=== PATIENT | male | born 1985 | race Caucasian/White ===

== ENCOUNTER → 2017-07-10 | Outpatient (CLI) | payer OTHER | END | disposition home or self-care (01) | LOC: LABWHC1 07:23 | PROVIDERS: ATTEND Physician Assistant Medical | DX: Z11.1 Encounter for screening for respiratory tuberculosis (principal) | CPT/HCPCS: 36415; 86480 ==

== ENCOUNTER 2017-07-22 17:59 | Inpatient (IN) | payer BC, OTHER ==
[2017-07-22] MEDS ORDERED: SODIUM CHLORIDE 0.9% 500 ML IV STA (18:23)
--- NOTE | 2017-07-22 18:29 | ED ---
Abdominal Pain HPI <Ahmet Boyd - Last Filed: 07/22/17 21:39> - General Source: patient, RN notes reviewed Mode of arrival: ambulatory Limitations: no limitations <Marcelino Lara - Last Filed: 07/22/17 21:45> - General Chief Complaint: Abdominal Pain Stated Complaint: abdominal pain Time Seen by Provider: 07/22/17 18:16 - History of Present Illness Initial Comments: This a 32-year-old male presents emergency Department chief complaint of right upper quadrant abdominal pain. Patient states his been given pain last few days to weeks ago. Patient states that pain is worsening states that he feels so bloated and distended that he cannot tolerate. Patient states symptoms haven 't worsen with eating. He went to his primary care physician was unable see him today and told to urgent care. Patient states he had an x-ray urgent care which showed large calcified area in his right quadrant bicycle emergency Department for further evaluation. Patient had no prior abdominal surgeries. He states that he forces himself to get sick over the last few nights states it' s on the makes him feel better. He states that he cannot get comfortable symptoms are worse when he lays down. He states is having regular bowel movements no change involvement. Denies any dysuria hematuria. No history kidney stones. Patient denies chest pain, back pain, shortness of breath. Patient states essentially nothing other than vomiting makes his symptoms feel better. (Marcelino Lara) - Related Data Home Medications Medication Instructions Recorded Confirmed Omeprazole 20 mg PO DAILY 07/22/17 07/22/17 Allergies Allergy/AdvReac Type Severity Reaction Status Date / Time No Known Allergies Allergy Verified 07/22/17 18:23 Review of Systems ROS Other: All systems not noted in ROS Statement are negative. <Ahmet Boyd - Last Filed: 07/22/17 21:39> ROS Other: All systems not noted in ROS Statement are negative. <Marcelino Lara - Last Filed: 07/22/17 21:45> ROS Statement: Those systems with pertinent positive or pertinent negative responses have been documented in the HPI. Past Medical History Past Medical History: No Reported History History of Any Multi-Drug Resistant Organisms: None Reported Past Surgical History: No Surgical Hx Reported Past Psychological History: No Psychological Hx Reported Smoking Status: Never smoker Past Alcohol Use History: None Reported Past Drug Use History: None Reported <Marcelino Lara - Last Filed: 07/22/17 21:45> General Exam Limitations: no limitations General appearance: alert, in no apparent distress Head exam: Present: atraumatic, normocephalic, normal inspection Respiratory exam: Present: normal lung sounds bilaterally. Absent: respiratory distress, wheezes, rales, rhonchi, stridor Cardiovascular Exam: Present: regular rate, normal rhythm, normal heart sounds. Absent: systolic murmur, diastolic murmur, rubs, gallop, clicks GI/Abdominal exam: Present: soft, distended (Mild/moderate upper abdominal), tenderness (Right upper quadrant), normal bowel sounds. Absent: guarding, rebound, rigid Back exam: Absent: CVA tenderness (R), CVA tenderness (L) Skin exam: Present: warm, dry, intact, normal color. Absent: rash <Marcelino Lara - Last Filed: 07/22/17 21:45> Vital Signs 07/22/17 07/22/17 18:08 20:31 Temperature 98.3 F 99.0 F Pulse Rate 94 89 Respiratory 20 18 Rate Blood Pressure 143/73 136/65 O2 Sat by Pulse 100 100 Oximetry Medical Decision Making - Lab Data Result diagrams: 07/22/17 18:55 07/22/17 18:55 <Ahmet Boyd - Last Filed: 07/22/17 21:39> - Lab Data Result diagrams: 07/22/17 18:55 07/22/17 18:55 <Marcelino Lara - Last Filed: 07/22/17 21:45> - Medical Decision Making The patient was seen and examined. All diagnostics were reviewed. It does appear that he has significant pancreatitis. He does relate that he drinks 8- 10 beers approximately 3 days per week. It is felt as though his pancreatitis may be related to alcohol use. There is also felt as though he benefit from admission to the hospital. Case will be discussed with medicine in the near future. Case is discussed with the PA and I agree with findings as documented. (Ahmet Boyd) - Lab Data Lab Results 07/22/17 07/22/17 07/22/17 Range/Units 18:55 18:55 18:55 WBC 10.2 (3.8-10.6) k/uL RBC 4.56 (4.30-5.90) m/uL Hgb 13.4 (13.0-17.5) gm/dL Hct 38.5 L (39.0-53.0) % MCV 84.4 (80.0-100.0) fL MCH 29.3 (25.0-35.0) pg MCHC 34.7 (31.0-37.0) g/dL RDW 11.1 L (11.5-15.5) % Plt Count 339 (150-450) k/uL Neutrophils % 78 % Lymphocytes % 12 % Monocytes % 6 % Eosinophils % 1 % Basophils % 1 % Neutrophils # 8.0 H (1.3-7.7) k/uL Lymphocytes # 1.3 (1.0-4.8) k/uL Monocytes # 0.6 (0-1.0) k/uL Eosinophils # 0.1 (0-0.7) k/uL Basophils # 0.1 (0-0.2) k/uL Sodium 137 (137-145) mmol/L Potassium 4.5 (3.5-5.1) mmol/L Chloride 98 (98-107) mmol/L Carbon Dioxide 26 (22-30) mmol/L Anion Gap 13 mmol/L BUN 17 (9-20) mg/dL Creatinine 0.98 (0.66-1.25) mg/dL Est GFR (MDRD) Af Amer >60 (>60 ml/min/1.73 sqM) Est GFR (MDRD) Non-Af >60 (>60 ml/min/1.73 sqM) Glucose 71 L (74-99) mg/dL Calcium 9.5 (8.4-10.2) mg/dL Total Bilirubin 0.6 (0.2-1.3) mg/dL AST 55 (17-59) U/L ALT 47 (21-72) U/L Alkaline Phosphatase 71 (38-126) U/L Total Protein 6.8 (6.3-8.2) g/dL Albumin 4.0 (3.5-5.0) g/dL Amylase 113 H (30-110) U/L Lipase 1056 H (23-300) U/L Urine Color Yellow Urine Appearance Clear (Clear) Urine pH 6.5 (5.0-8.0) Ur Specific [place] 1.029 (1.001-1.035) Urine Protein 2+ H (Negative) Urine Glucose (UA) Negative (Negative) Urine Ketones 3+ H (Negative) Urine Blood Negative (Negative) Urine Nitrite Negative (Negative) Urine Bilirubin Negative (Negative) Urine Urobilinogen <2.0 (<2.0) mg/dL Ur Leukocyte Esterase Negative (Negative) Urine RBC 2 (0-5) /hpf Urine WBC 2 (0-5) /hpf Urine Bacteria Rare H (None) /hpf Urine Mucus Rare H (None) /hpf Disposition <Ahmet Boyd - Last Filed: 07/22/17 21:39> Time of Disposition: 21:45 <Marcelino Lara - Last Filed: 07/22/17 21:45> Clinical Impression: Pancreatitis Disposition: ADMITTED IP TO THIS HOSP Condition: Stable Referrals: Jose Chino DO [Primary Care Provider] - 1-2 days
[2017-07-22 19:12] LABS: Basophils # (A) 0.1 k/uL (0-0.2); Basophils % (A) 1 %; Eosinophils # (A) 0.1 k/uL (0-0.7); Eosinophils % (A) 1 %; HCT 38.5 % (39.0-53.0); HGB 13.4 gm/dL (13.0-17.5); Lymphocytes # (A) 1.3 k/uL (1.0-4.8); Lymphocytes % (A) 12 %; MCH 29.3 pg (25.0-35.0); MCHC 34.7 g/dL (31.0-37.0); MCV 84.4 fL (80.0-100.0); Mean Platelet Volume 6.9; Monocytes # (A) 0.6 k/uL (0-1.0); Monocytes % (A) 6 %; Neutrophils % (A) 78 %; Platelet Count 339 k/uL (150-450); RBC 4.56 m/uL (4.30-5.90); RDW 11.1 % (11.5-15.5); WBC 10.2 k/uL (3.8-10.6)
[2017-07-22 19:15] LABS: Appearance,Urine Clear (Clear); Bacteria,Urine Rare /hpf; Bilirubin,Urine Negative (Negative); Blood,Urine Negative (Negative); Color,Urine Yellow; Glucose,Urine (UA) Negative (Negative); Ketones,Urine 3+ (Negative); Leukocyte Esterase,Urine Negative (Negative); Mucus,Urine Rare /hpf; Nitrite,Urine Negative (Negative); PH, Urine 6.5 (5.0-8.0); Protein,Urine 2+ (Negative); RBC,Urine 2 /hpf (0-5); Specific Gravity,Urine 1.029 (1.001-1.035); Urobilinogen,Urine <2.0 mg/dL (<2.0); WBC,Urine 2 /hpf (0-5)
[2017-07-22 19:21] LABS: ALT 47 U/L (21-72); AST 55 U/L (17-59); Alkaline Phosphatase 71 U/L (38-126); Amylase 113 U/L (30-110); Anion Gap 13 mmol/L; Blood Urea Nitrogen 17 mg/dL (9-20); Calcium 9.5 mg/dL (8.4-10.2); Carbon Dioxide 26 mmol/L (22-30); Chloride 98 mmol/L (98-107); Glucose 71 mg/dL (74-99); Lipase 1056 U/L (23-300); Potassium 4.5 mmol/L (3.5-5.1); Sodium 137 mmol/L (137-145); Total Bilirubin 0.6 mg/dL (0.2-1.3); Total Protein 6.8 g/dL (6.3-8.2)
[2017-07-22] MEDS ORDERED: RX INFO: IV CONTRAST WAS GIVEN 1 EACH MISC MISCELLANE PRN (19:44)
--- NOTE | 2017-07-22 20:07 | US ---
EXAMINATION TYPE: US abdomen limited DATE OF EXAM: 07/22/2017 COMPARISON: NONE CLINICAL HISTORY: Pain. RUQ pain and bloating. EXAM MEASUREMENTS: Liver Length: 15.3 cm Gallbladder Wall: 0.19 cm CBD: 0.34 cm Right Kidney: 11.3 x 4.8 x 4.9 cm Pancreas: Enlarged heterogenous with free fluid visualized. Head measuring 2.6cm. Liver: Hypoechoic area seen only in long image not visualized in transverse.l Gallbladder: No stones seen Evidence for sonographic Carrera's sign: No CBD: wnl Right Kidney: No hydronephrosis or masses seen Enlarged heterogenous pancreas with free fluid visualized. IMPRESSION: There is thickening of the body of the pancreas that could relate to pancreatitis. No dis crete mass seen. No gallstones or dilated ducts.
[2017-07-22] MEDS ORDERED: SODIUM CHLORIDE 0.9% 2,000 ML IV ONE (20:22)
--- NOTE | 2017-07-22 20:35 | CT ---
EXAMINATION TYPE: CT abdomen pelvis w con DATE OF EXAM: 07/22/2017 COMPARISON: NONE HISTORY: Abdominal pain x3 weeks. CT DLP: 428.3 mGycm Automated exposure control for dose reduction was used. TECHNIQUE: Helical acquisition of images was performed from the lung bases through the pelvis. CONTRAST: Performed without Oral Contrast and with IV Contrast, patient injected with 100 mL of Omnipaque 300. FINDINGS: Lung bases are clear. There is a small amount of pleural fluid bilaterally. Liver shows no focal defect. There is extensive diffuse enlargement of the pancreas. There is anterio r displacement of the stomach. Spleen appears normal. Gallbladder appears normal. Liver shows no focal defect. There is no adrenal mass. Kidneys show satisfactory contrast opacification. There is no hydronephrosi s. There is ascites fluid in the pelvis. Bladder distends smoothly. I see no evidence of a bowel obst ruction. There is some fluid in the anterior pararenal space bilaterally. The bony structures are int act. IMPRESSION: THERE IS DIFFUSE ENLARGEMENT OF THE PANCREAS WITH FLUID CONSISTENT WITH ACUTE PANCREATITIS. MILD ASCI WALDEMAR. MILD BILATERAL PLEURAL EFFUSIONS.
[2017-07-22] MEDS ORDERED: ONDANSETRON 4 MG/2 ML VIAL IVP PRN (21:43)
[2017-07-22] MEDS ORDERED: NALOXONE 0.4 MG/ML 1 ML VIAL IV PRN (21:43)
[2017-07-22] MEDS ORDERED: MORPHINE SULFATE 5 MG/ML SYRINGE IV PRN (21:43)
[2017-07-22] MEDS ORDERED: HYDROmorphone 0.5 MG/0.5 ML SYRINGE IVP PRN (21:43)
[2017-07-22] MEDS ORDERED: KETOROLAC 30 MG/ML 1 ML VIAL IVP PRN (21:43)
[2017-07-22 22:17] VITALS: BMI 24.0
[2017-07-23] MEDS: SODIUM CHLORIDE 0.9% 1,000 ML IV SCH ×5 (06:09→20:33)
[2017-07-23] MEDS: PANTOPRAZOLE 40 MG/10 ML VIAL IVP SCH (09:10)
[2017-07-23 09:32] LABS: Basophils # (A) 0.1 k/uL (0-0.2); Basophils % (A) 1 %; Eosinophils # (A) 0.1 k/uL (0-0.7); Eosinophils % (A) 1 %; HCT 38.7 % (39.0-53.0); HGB 13.1 gm/dL (13.0-17.5); Lymphocytes % (A) 11 %; MCH 29.1 pg (25.0-35.0); MCHC 33.9 g/dL (31.0-37.0); MCV 85.9 fL (80.0-100.0); Mean Platelet Volume 6.9; Monocytes # (A) 0.6 k/uL (0-1.0); Monocytes % (A) 7 %; Neutrophils # (A) 7.6 k/uL (1.3-7.7); Neutrophils % (A) 79 %; Platelet Count 332 k/uL (150-450); RDW 11.1 % (11.5-15.5); WBC 9.6 k/uL (3.8-10.6)
[2017-07-23 10:02] LABS: ALT 46 U/L (21-72); AST 52 U/L (17-59); Albumin 3.5 g/dL (3.5-5.0); Alkaline Phosphatase 69 U/L (38-126); Amylase 98 U/L (30-110); Anion Gap 14 mmol/L; Blood Urea Nitrogen 17 mg/dL (9-20); Calcium 9.3 mg/dL (8.4-10.2); Carbon Dioxide 21 mmol/L (22-30); Chloride 104 mmol/L (98-107); Glucose 58 mg/dL (74-99); Lipase 771 U/L (23-300); Potassium 4.6 mmol/L (3.5-5.1); Sodium 139 mmol/L (137-145); Total Bilirubin 0.8 mg/dL (0.2-1.3); Total Protein 6.2 g/dL (6.3-8.2); Triglycerides 117 mg/dL (<150)
--- NOTE | 2017-07-23 10:16 | P.CONS ---
History of Present Illness - Reason for Consult Consult date: 07/23/17 Acute pancreatitis Requesting physician: Lara Parker - History of Present Illness 32-year-old gentleman admitted with acute midepigastric upper abdominal pain radiating to back side, elevated pancreatic enzymes consistent with acute pancreatitis. Patient has been symptomatic for a month now with nausea and abdominal bloatedness discomfort. He socially drinks 3 days a week 4-6 beers. No history of document pancreatitis. Recently evaluated urgent care center with reported elevated pancreatic enzymes. Denies fever chills hematemesis hematochezia melena jaundice or acholic stools. Last alcoholic drink 2 days ago. White count 9.6-10.2. Hemoglobin 13.1-13.4. MCV 84-85. Platelets 332. Amylase 98-113. Lipase 771-1056. LFTs within normal limits. Ultrasound abdomen thickening body of the pancreas no discrete mass. No gallstones. No dilated ducts. CT abdomen and pelvis diffuse enlargement of the pancreas with fluid consistent with acute pancreatitis and mild ascites. Review of Systems Constitutional: Denies fever, chills, sweats, weight gain, or loss. HEENT: Negative for migraines, blurred vision or loss, earaches, drainage, tinnitus, oral mucosal lesions, dysphagia, or odynophagia. Cardiac: Negative for chest pain, arrhythmias, or palpitation. Respiratory: Negative for shortness of breath, hemoptysis, cough, or sputum production. Gastrointestinal: See HPI for pertinent findings. Genitourinary: Negative for hematuria, urgency, frequency, polyuria, dysuria, or penile discharge. Musculoskeletal: Negative for muscle aches, swelling, arthritis, and arthralgias. Neurologic: Negative for stroke or TIA. Endocrine: Negative for thyroid problems. Skin: Negative for rash or itching. Psychiatric: Negative history for depression and anxiety Past Medical History Past Medical History: No Reported History History of Any Multi-Drug Resistant Organisms: None Reported Past Surgical History: No Surgical Hx Reported Past Psychological History: No Psychological Hx Reported Smoking Status: Never smoker Past Alcohol Use History: None Reported Past Drug Use History: None Reported Medications and Allergies Home Medications Medication Instructions Recorded Confirmed Type Omeprazole 20 mg PO DAILY 07/22/17 07/22/17 History Allergies Allergy/AdvReac Type Severity Reaction Status Date / Time No Known Allergies Allergy Verified 07/22/17 18:23 Physical Exam Vitals: Vital Signs Temp Pulse Pulse Resp BP BP Pulse Ox 07/23/17 07:00 97.2 F L 88 16 127/67 99 07/22/17 23:12 96.9 F L 89 19 131/69 99 07/22/17 20:31 99.0 F 89 18 136/65 100 07/22/17 18:08 98.3 F 94 20 143/73 100 Intake and Output 07/22/17 07/23/17 07/23/17 22:59 06:59 14:59 Other: Voiding Method Toilet # Voids 1 Weight 74 kg General appearance: The patient is alert, oriented, in no acute distress. HET: Head is normocephalic and atraumatic. Pupils are equal and reactive. Oropharynx is clear without lesions. Neck: Supple without lymphadenopathy. Trachea midline. Heart: S1 S2. Regular rate and rhythm. Lungs: No crackles or wheezes are heard. Abdomen: Soft, tenderness midepigastrium upper abdomen mildly bloated with bowel sounds. No peritoneal signs. No palpable organomegaly or masses. Extremities: Normal skin color and turgor. No cyanosis, rash, ulceration, clubbing, or edema. Radial and pedal pulses are 2/4 bilaterally. Neurological: No focal deficits. Strength and sensation are grossly intact. Results CBC & Chem 7: 07/23/17 09:10 07/23/17 09:10 Labs: Abnormal Lab Results - Last 24 Hours (Table) 07/22/17 07/22/17 07/22/17 Range/Units 18:55 18:55 18:55 Hct 38.5 L (39.0-53.0) % RDW 11.1 L (11.5-15.5) % Neutrophils # 8.0 H (1.3-7.7) k/uL Carbon Dioxide (22-30) mmol/L Glucose 71 L (74-99) mg/dL Total Protein (6.3-8.2) g/dL Amylase 113 H (30-110) U/L Lipase 1056 H (23-300) U/L Urine Protein 2+ H (Negative) Urine Ketones 3+ H (Negative) Urine Bacteria Rare H (None) /hpf Urine Mucus Rare H (None) /hpf 07/23/17 07/23/17 Range/Units 09:10 09:10 Hct 38.7 L (39.0-53.0) % RDW 11.1 L (11.5-15.5) % Neutrophils # (1.3-7.7) k/uL Carbon Dioxide 21 L (22-30) mmol/L Glucose 58 L (74-99) mg/dL Total Protein 6.2 L (6.3-8.2) g/dL Amylase (30-110) U/L Lipase 771 H (23-300) U/L Urine Protein (Negative) Urine Ketones (Negative) Urine Bacteria (None) /hpf Urine Mucus (None) /hpf CT scan - abdomen: report reviewed (Dr. Paagn) US - abdomen: report reviewed (Dr. Pagan) Assessment and Plan (1) Pancreatitis Narrative/Plan: Suspect alcohol related however other differentials such as hypertriglyceridemia possible autoimmune disease cannot be entirely excluded. Current Visit: Yes Status: Acute Code(s): K85.90 - ACUTE PANCREATITIS WITHOUT NECROSIS OR INFECTION, UNSP SNOMED Code(s): 92176648 Plan: 1. Pancreatic enzymes improving abdominal pain slightly improved. Admission requesting diet. Will allow clear liquid diet and advance as tolerated. 2. Alcohol abstinence discussed. 3. ANGELITO, IgG subclass 1-4 and triglyceride evaluation. 4. Intravenous hydration 125 an hour. Thank you for this kind referral and the opportunity to participate in the care of your patient. This consultation was discussed with Dr. Pagan. The impression and plan of care have been directed as dictated.
--- NOTE | 2017-07-23 11:13 | P.HPIM ---
History of Present Illness 32-year-old pleasant male with no known history of for the past medicall problems came in with complaints of epigastric abdominal pain has been going on for about a month much more worse last couple days. Patient doesn't drink on a regular basis but then when he drinks he drinks binge drinks. Denied any fever chills was having some nausea which resolved at this point of time. Patient is found to have pancreatitis in with elevated lipase and may have alcoholic gastritis patient does have bilateral pleural effusions mild ascites secondary to pancreatitis patient pain is better because of which patient was started on diet advance diet is being advanced patient still has his gallbladder which doesn't seem to be inflamed as per the CAT scan of the abdomen. Patient whenever he drinks drinks about 4-6 beers. Patient's pain is burning sensation for about a month yesterday it's much worse it used to be 3-4 x 10 in severity Review of Systems REVIEW OF SYSTEMS: CONSTITUTIONAL: No fever, no malaise, no fatigue. HEENT: No recent visual problems or hearing problems. Denied any sore throat. CARDIOVASCULAR: No chest pain, orthopnea, PND, no palpitations, no syncope. PULMONARY: No shortness of breath, no cough, no hemoptysis. GASTROINTESTINAL: As mentioned in HPI NEUROLOGICAL: No headaches, no weakness, no numbness. HEMATOLOGICAL: Denies any bleeding or petechiae. GENITOURINARY: Denies any burning micturition, frequency, or urgency. MUSCULOSKELETAL/RHEUMATOLOGICAL: Denies any joint pain, swelling, or any muscle pain. ENDOCRINE: Denies any polyuria or polydipsia. The rest of the 14-point review of systems is negative. Past Medical History Past Medical History: No Reported History History of Any Multi-Drug Resistant Organisms: None Reported Past Surgical History: No Surgical Hx Reported Past Psychological History: No Psychological Hx Reported Smoking Status: Never smoker Past Alcohol Use History: None Reported Past Drug Use History: None Reported Medications and Allergies Home Medications Medication Instructions Recorded Confirmed Type Omeprazole 20 mg PO DAILY 07/22/17 07/22/17 History Allergies Allergy/AdvReac Type Severity Reaction Status Date / Time No Known Allergies Allergy Verified 07/22/17 18:23 Physical Exam Vitals: Vital Signs Temp Pulse Pulse Resp BP BP Pulse Ox 07/23/17 07:00 97.2 F L 88 16 127/67 99 07/22/17 23:12 96.9 F L 89 19 131/69 99 07/22/17 20:31 99.0 F 89 18 136/65 100 07/22/17 18:08 98.3 F 94 20 143/73 100 Intake and Output 07/22/17 07/23/17 07/23/17 22:59 06:59 14:59 Other: Voiding Method Toilet # Voids 1 Weight 74 kg PHYSICAL EXAMINATION: GENERAL: The patient is alert and oriented x3, not in any acute distress. Well developed, well nourished. HEENT: Pupils are round and equally reacting to light. EOMI. No scleral icterus. No conjunctival pallor. Normocephalic, atraumatic. No pharyngeal erythema. No thyromegaly. CARDIOVASCULAR: S1 and S2 present. No murmurs, rubs, or gallops. PULMONARY: Chest is clear to auscultation, no wheezing or crackles. ABDOMEN: Soft, nontender, nondistended, normoactive bowel sounds. No palpable organomegaly. MUSCULOSKELETAL: No joint swelling or deformity. EXTREMITIES: No cyanosis, clubbing, or pedal edema. NEUROLOGICAL: Gross neurological examination did not reveal any focal deficits. SKIN: No rashes. Results CBC & Chem 7: 07/23/17 09:10 07/23/17 09:10 Labs: Abnormal Lab Results - Last 24 Hours (Table) 07/22/17 07/22/17 07/22/17 Range/Units 18:55 18:55 18:55 Hct 38.5 L (39.0-53.0) % RDW 11.1 L (11.5-15.5) % Neutrophils # 8.0 H (1.3-7.7) k/uL Carbon Dioxide (22-30) mmol/L Glucose 71 L (74-99) mg/dL Total Protein (6.3-8.2) g/dL Amylase 113 H (30-110) U/L Lipase 1056 H (23-300) U/L Urine Protein 2+ H (Negative) Urine Ketones 3+ H (Negative) Urine Bacteria Rare H (None) /hpf Urine Mucus Rare H (None) /hpf 07/23/17 07/23/17 Range/Units 09:10 09:10 Hct 38.7 L (39.0-53.0) % RDW 11.1 L (11.5-15.5) % Neutrophils # (1.3-7.7) k/uL Carbon Dioxide 21 L (22-30) mmol/L Glucose 58 L (74-99) mg/dL Total Protein 6.2 L (6.3-8.2) g/dL Amylase (30-110) U/L Lipase 771 H (23-300) U/L Urine Protein (Negative) Urine Ketones (Negative) Urine Bacteria (None) /hpf Urine Mucus (None) /hpf Thrombosis Risk Factor Assmnt - Choose All That Apply Any of the Below Risk Factors Present?: No Other Risk Factors: No Other congenital or acquired thrombophilia - If yes, enter type in comment: No Thrombosis Risk Factor Assessment Level: Very Low Risk Assessment and Plan Plan: -Abdominal pain: Secondary to possible acute pancreatitis patient may have a colic pancreatitis no evidence of cholelithiasis at this time. Patient will be advanced. -Alcoholic gastritis -Bilateral pleural effusions and myelocyte is secondary to pancreatitis most probably. The patient is clinically doing well patient will be discharged tomorrow we will advance her diet.
[2017-07-24] MEDS: SODIUM CHLORIDE 0.9% 1,000 ML IV SCH (06:28)
[2017-07-24 07:38] VITALS: BP 120/69; PULSE 76; RESP 16; TEMP 97.9
[2017-07-24 08:13] LABS: HCT 36.3 % (39.0-53.0); HGB 12.4 gm/dL (13.0-17.5); MCH 29.5 pg (25.0-35.0); MCHC 34.2 g/dL (31.0-37.0); MCV 86.1 fL (80.0-100.0); Mean Platelet Volume 6.9; Platelet Count 322 k/uL (150-450); RBC 4.22 m/uL (4.30-5.90); RDW 11.2 % (11.5-15.5); WBC 7.6 k/uL (3.8-10.6)
[2017-07-24 08:38] LABS: ALT 41 U/L (21-72); AST 54 U/L (17-59); Albumin 3.5 g/dL (3.5-5.0); Alkaline Phosphatase 63 U/L (38-126); Anion Gap 9 mmol/L; Blood Urea Nitrogen 10 mg/dL (9-20); Calcium 9.3 mg/dL (8.4-10.2); Carbon Dioxide 27 mmol/L (22-30); Chloride 103 mmol/L (98-107); Glucose 90 mg/dL (74-99); Lipase 663 U/L (23-300); Potassium 4.5 mmol/L (3.5-5.1); Sodium 139 mmol/L (137-145); Total Bilirubin 0.5 mg/dL (0.2-1.3); Total Protein 6.2 g/dL (6.3-8.2)
[2017-07-24] MEDS: PANTOPRAZOLE 40 MG/10 ML VIAL IVP SCH (09:22)
--- NOTE | 2017-07-24 10:53 | P.DS ---
Providers Date of admission: 07/22/17 21:43 Attending physician: Lara Parker Consults: 07/22/17 21:43 Consult Physician Stat Consulting Provider: Evelio Negrete Consult Reason/Comments: Acute pancreatitis Do you want consulting provider notified?: Yes Primary care physician: Jose Chino Hospital Course: Patient was admitted for alcohol pancreatitis and gastritis improved symptoms patient is able to tolerate diet patient will be given prescription for 30 days of Prilosec and will be discharged today patient is otherwise clinically doing well no other chronic medical problems PHYSICAL EXAMINATION: GENERAL: The patient is alert and oriented x3, not in any acute distress. Well developed, well nourished. HEENT: Pupils are round and equally reacting to light. EOMI. No scleral icterus. No conjunctival pallor. Normocephalic, atraumatic. No pharyngeal erythema. No thyromegaly. CARDIOVASCULAR: S1 and S2 present. No murmurs, rubs, or gallops. PULMONARY: Chest is clear to auscultation, no wheezing or crackles. ABDOMEN: Soft, nontender, nondistended, normoactive bowel sounds. No palpable organomegaly. MUSCULOSKELETAL: No joint swelling or deformity. EXTREMITIES: No cyanosis, clubbing, or pedal edema. NEUROLOGICAL: Gross neurological examination did not reveal any focal deficits. SKIN: No rashes. Patient Condition at Discharge: Stable Plan - Discharge Summary Discharge Rx Participant: Yes New Discharge Prescriptions: New Omeprazole [PriLOSEC] 40 mg PO AC-BRKFST #30 capsule. Discontinued Omeprazole 20 mg PO DAILY Discharge Medication List Omeprazole [PriLOSEC] 40 mg PO AC-BRKFST #30 capsule. 07/24/17 [Rx] Follow up Appointment(s)/Referral(s): Jose Chino DO [Primary Care Provider] - 3 Days Patient Instructions/Handouts: Pancreatitis (DC) Activity/Diet/Wound Care/Special Instructions: NO alcohol. [place]renshaw-soft diet and advance as tolerated. Activity as tolerated. Discharge Disposition: HOME SELF-CARE
--- NOTE | 2017-07-24 11:33 | P.PN ---
Subjective Progress Note Date: 07/24/17 Principal diagnosis: Pancreatitis Feels better. Tolerating advance diet. Passing flatus. Few small nonbloody bowel movements. Afebrile. Pancreatic enzymes improving. Denies nausea vomiting. Lipase 663. LFTs unremarkable. Objective - Vital Signs Vital signs: Vital Signs Temp 97.9 F 07/24/17 07:00 Pulse 76 07/24/17 07:00 Resp 16 07/24/17 07:00 BP 120/69 07/24/17 07:00 Pulse Ox 96 07/24/17 07:00 Intake & Output 07/23/17 07/24/17 07/24/17 18:59 06:59 18:59 Intake Total 200 Balance 200 Intake: Oral 200 Other: Voiding Method Toilet # Voids 2 2 # Bowel Movements 0 - Exam General appearance: The patient is alert, oriented, in no acute distress. HET: Head is normocephalic and atraumatic. Pupils are equal and reactive. Oropharynx is clear without lesions. Neck: Supple without lymphadenopathy. Trachea midline. Heart: S1 S2. Regular rate and rhythm. Lungs: No crackles or wheezes are heard. Abdomen: Soft, mildly bloated mild tenderness midepigastrium with bowel sounds. No peritoneal signs. No palpable organomegaly or masses. Extremities: Normal skin color and turgor. No cyanosis, rash, ulceration, clubbing, or edema. Radial and pedal pulses are 2/4 bilaterally. Neurological: No focal deficits. Strength and sensation are grossly intact. - Labs CBC & Chem 7: 07/24/17 07:48 07/24/17 07:48 Labs: Abnormal Lab Results - Last 24 Hours (Table) 07/24/17 07/24/17 Range/Units 07:48 07:48 RBC 4.22 L (4.30-5.90) m/uL Hgb 12.4 L (13.0-17.5) gm/dL Hct 36.3 L (39.0-53.0) % RDW 11.2 L (11.5-15.5) % Total Protein 6.2 L (6.3-8.2) g/dL Lipase 663 H (23-300) U/L Assessment and Plan (1) Pancreatitis Narrative/Plan: Suspect alcohol related however other differentials such as hypertriglyceridemia possible autoimmune disease cannot be entirely excluded. Current Visit: Yes Status: Acute Code(s): K85.90 - ACUTE PANCREATITIS WITHOUT NECROSIS OR INFECTION, UNSP SNOMED Code(s): 38985168 Plan: 1. Discharge per medicine. Return to office in 2 weeks. Advised low fat diet 4-6 meals daily. Light activity as tolerated. PPI therapy omeprazole 20 mg daily. 2. Avoidance of spicy foods, alcohol, carbonated beverages. Assessment and plan a care discussed with Dr. Pagan
[2017-07-24 13:14] LABS: IgG Subclass 3 42.8 mg/dL (11.0-85.0); IgG Subclass 4 70.7 mg/dL (3.0-175.0)
== END 2017-07-24 12:03 | disposition home or self-care (01) | DRG 439 ==
LOC: EC 17:59 → 4MS4W 21:43
PROVIDERS: ADMIT Internal Medicine; ATTEND Internal Medicine
DX: K85.90 Acute pancreatitis without necrosis or infection, unspecified (principal); R18.8 Other ascites; J90 Pleural effusion, not elsewhere classified; F10.10 Alcohol abuse, uncomplicated; K29.20 Alcoholic gastritis without bleeding; Z79.899 Other long term (current) drug therapy
CPT/HCPCS: 36415; 74177; 76705; 80053; 81001; 82150; 82787; 83690; 84478; 85025; 85027; 86038; 96360; 99285

== ENCOUNTER 2017-07-27 12:17 | Emergency (ER) | payer BC ==
[2017-07-27] MEDS ORDERED: SODIUM CHLORIDE 0.9% 1,000 ML IV STA (13:21)
[2017-07-27] MEDS ORDERED: HYDROmorphone 0.5 MG/0.5 ML SYRINGE IVP STA ×2 (13:29→14:17)
[2017-07-27] MEDS ORDERED: METOCLOPRAMIDE 5 MG/ML 2 ML VIAL IVP STA (13:29)
[2017-07-27 13:54] LABS: Appearance,Urine Clear (Clear); Bilirubin,Urine Negative (Negative); Blood,Urine Negative (Negative); Color,Urine Yellow; Glucose,Urine (UA) Negative (Negative); Ketones,Urine 2+ (Negative); Leukocyte Esterase,Urine Negative (Negative); Nitrite,Urine Negative (Negative); Protein,Urine Negative (Negative); Specific Gravity,Urine 1.011 (1.001-1.035); Urobilinogen,Urine <2.0 mg/dL (<2.0)
[2017-07-27 13:56] LABS: Basophils # (A) 0.1 k/uL (0-0.2); Basophils % (A) 1 %; Eosinophils # (A) 0.1 k/uL (0-0.7); Eosinophils % (A) 1 %; HCT 39.1 % (39.0-53.0); HGB 13.4 gm/dL (13.0-17.5); Lymphocytes # (A) 0.9 k/uL (1.0-4.8); Lymphocytes % (A) 10 %; MCHC 34.3 g/dL (31.0-37.0); MCV 84.6 fL (80.0-100.0); Mean Platelet Volume 7.3; Monocytes # (A) 0.6 k/uL (0-1.0); Monocytes % (A) 6 %; Neutrophils # (A) 7.8 k/uL (1.3-7.7); Neutrophils % (A) 81 %; Platelet Count 344 k/uL (150-450); RBC 4.62 m/uL (4.30-5.90); RDW 12.1 % (11.5-15.5); WBC 9.6 k/uL (3.8-10.6)
[2017-07-27 14:03] LABS: ALT 52 U/L (21-72); AST 66 U/L (17-59); Albumin 4.1 g/dL (3.5-5.0); Alkaline Phosphatase 76 U/L (38-126); Amylase 79 U/L (30-110); Anion Gap 16 mmol/L; Blood Urea Nitrogen 10 mg/dL (9-20); Calcium 9.8 mg/dL (8.4-10.2); Carbon Dioxide 25 mmol/L (22-30); Chloride 98 mmol/L (98-107); Glucose 77 mg/dL (74-99); Lipase 693 U/L (23-300); Sodium 139 mmol/L (137-145); Total Bilirubin 0.6 mg/dL (0.2-1.3); Total Protein 6.9 g/dL (6.3-8.2)
--- NOTE | 2017-07-27 14:13 | XR ---
EXAMINATION TYPE: XR KUB DATE OF EXAM: 07/27/2017 CLINICAL DATA: 32-year-old male with abdominal pain, PH[facility] COMPARISON: None FINDINGS: There is a small left pleural effusion. No evidence for free intraperitoneal air. Small bowel air-fluid levels in the lower abdomen as well as air-fluid levels in the right side of th e colon. No suspicious calcifications seen. IMPRESSION: 1. The presence of small bowel and colonic air fluid levels suggest ileus or enteritis rather than ob struction. 2. No free air. 3. Small left pleural effusion.
[2017-07-27] MEDS ORDERED: HYDROmorphone 2 MG/ML 1 ML SYRINGE IVP STA (14:18)
--- NOTE | 2017-07-27 14:31 | ED ---
Abdominal Pain HPI - General Chief Complaint: Abdominal Pain Stated Complaint: Abd Pain Time Seen by Provider: 07/27/17 13:21 Source: patient, RN notes reviewed Mode of arrival: ambulatory Limitations: no limitations - History of Present Illness Initial Comments: 32-year-old male presents emergency Department chief complaint of worsening abdominal pain. Patient was discharged on Saturday for pancreatitis. Patient states felt more distended, bloated feeling. Patient states he feels that he is an ileus. Patient states that she was on a liquid diet told progress as tolerated. Denies any alcohol intake. Denies fever or chills. - Related Data Previous Rx's Medication Instructions Recorded Omeprazole [PriLOSEC] 40 mg PO AC-BRKFST #30 capsule. 07/24/17 Hydrocodone/Acetaminophen [[place] 1 tab PO Q6HR PRN #20 tab 07/27/17 5-325] Allergies Allergy/AdvReac Type Severity Reaction Status Date / Time No Known Allergies Allergy Verified 07/27/17 13:23 Review of Systems ROS Statement: Those systems with pertinent positive or pertinent negative responses have been documented in the HPI. ROS Other: All systems not noted in ROS Statement are negative. Past Medical History Past Medical History: No Reported History Additional Past Medical History / Comment(s): pancreatitis History of Any Multi-Drug Resistant Organisms: None Reported Past Surgical History: No Surgical Hx Reported Past Psychological History: No Psychological Hx Reported Smoking Status: Never smoker Past Alcohol Use History: None Reported Past Drug Use History: None Reported General Exam Limitations: no limitations General appearance: alert, in no apparent distress Head exam: Present: atraumatic, normocephalic, normal inspection Respiratory exam: Present: normal lung sounds bilaterally. Absent: respiratory distress, wheezes, rales, rhonchi, stridor Cardiovascular Exam: Present: regular rate, normal rhythm, normal heart sounds. Absent: systolic murmur, diastolic murmur, rubs, gallop, clicks GI/Abdominal exam: Present: soft, distended, tenderness, normal bowel sounds. Absent: guarding, rebound, rigid Back exam: Absent: CVA tenderness (R), CVA tenderness (L) Skin exam: Present: warm, dry, intact, normal color. Absent: rash Course Vital Signs 07/27/17 12:54 Temperature 98.5 F Pulse Rate 97 Respiratory 20 Rate Blood Pressure 146/75 O2 Sat by Pulse 98 Oximetry Medical Decision Making - Medical Decision Making 32-year-old male present emergency from for abdominal pain recent pancreatitis. 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 X-ray does show ileus. Patient will be given bowel regimen at this time and pain medication. Patient will be discharged advised to present here to clear liquid diet and progress as tolerated. - Lab Data Result diagrams: 07/27/17 13:35 07/27/17 13:35 Lab Results 07/27/17 07/27/17 07/27/17 Range/Units 13:35 13:35 13:35 WBC 9.6 (3.8-10.6) k/uL RBC 4.62 (4.30-5.90) m/uL Hgb 13.4 (13.0-17.5) gm/dL Hct 39.1 (39.0-53.0) % MCV 84.6 (80.0-100.0) fL MCH 29.0 (25.0-35.0) pg MCHC 34.3 (31.0-37.0) g/dL RDW 12.1 (11.5-15.5) % Plt Count 344 (150-450) k/uL Neutrophils % 81 % Lymphocytes % 10 % Monocytes % 6 % Eosinophils % 1 % Basophils % 1 % Neutrophils # 7.8 H (1.3-7.7) k/uL Lymphocytes # 0.9 L (1.0-4.8) k/uL Monocytes # 0.6 (0-1.0) k/uL Eosinophils # 0.1 (0-0.7) k/uL Basophils # 0.1 (0-0.2) k/uL Sodium 139 (137-145) mmol/L Potassium 4.0 (3.5-5.1) mmol/L Chloride 98 (98-107) mmol/L Carbon Dioxide 25 (22-30) mmol/L Anion Gap 16 mmol/L BUN 10 (9-20) mg/dL Creatinine 0.89 (0.66-1.25) mg/dL Est GFR (MDRD) Af Amer >60 (>60 ml/min/1.73 sqM) Est GFR (MDRD) Non-Af >60 (>60 ml/min/1.73 sqM) Glucose 77 (74-99) mg/dL Calcium 9.8 (8.4-10.2) mg/dL Total Bilirubin 0.6 (0.2-1.3) mg/dL AST 66 H (17-59) U/L ALT 52 (21-72) U/L Alkaline Phosphatase 76 (38-126) U/L Total Protein 6.9 (6.3-8.2) g/dL Albumin 4.1 (3.5-5.0) g/dL Amylase 79 (30-110) U/L Lipase 693 H (23-300) U/L Urine Color Yellow Urine Appearance Clear (Clear) Urine pH 7.0 (5.0-8.0) Ur Specific [place] 1.011 (1.001-1.035) Urine Protein Negative (Negative) Urine Glucose (UA) Negative (Negative) Urine Ketones 2+ H (Negative) Urine Blood Negative (Negative) Urine Nitrite Negative (Negative) Urine Bilirubin Negative (Negative) Urine Urobilinogen <2.0 (<2.0) mg/dL Ur Leukocyte Esterase Negative (Negative) Disposition Clinical Impression: Pancreatitis, Ileus, Abdominal pain Disposition: HOME SELF-CARE Condition: Stable Instructions: Ileus (ED) Additional Instructions: Please return to the Emergency Department if symptoms worsen or any other concerns. Prescriptions: Hydrocodone/Acetaminophen [[place] 5-325] 1 tab PO Q6HR PRN #20 tab PRN Reason: Pain Referrals: Jose Chino DO [Primary Care Provider] - 1-2 days Time of Disposition: 14:39
[2017-07-27] MEDS ORDERED: MAGNESIUM CITRATE 296 ML BOTTLE PO ONE (14:37)
[2017-07-27] MEDS ORDERED: BISACODYL 10 MG SUPP RECTAL STA (14:37)
[2017-07-27 14:42] VITALS: BP 135/71; PULSE 91; RESP 18; TEMP 98.6
== END 2017-07-27 15:13 | disposition home or self-care (01) ==
LOC: EC 12:17
DX: K85.90 Acute pancreatitis without necrosis or infection, unspecified (principal); K56.7 Ileus, unspecified; Z53.8 Procedure and treatment not carried out for other reasons
CPT/HCPCS: 36415; 80053; 82150; 83690; 85025; 81003; 74018; 99284; 96374; 96375; 96376; 96361; J1170 ×2; J2765

== ENCOUNTER → 2017-11-28 | Outpatient (CLI) | payer BC ==
[2017-11-28 12:00] LABS: HCT 28.4 % (39.0-53.0); HGB 9.6 gm/dL (13.0-17.5); MCH 29.9 pg (25.0-35.0); MCHC 33.7 g/dL (31.0-37.0); MCV 88.7 fL (80.0-100.0); Mean Platelet Volume 7.6; Platelet Count 127 k/uL (150-450); RDW 14.8 % (11.5-15.5)
[2017-11-28 12:31] LABS: WBC 0.8 k/uL (3.8-10.6)
[2017-11-28 12:48] LABS: Anisocytosis (M) Present; Poikilocytosis (M) Present; Tear Drop Cells Present
== END | disposition home or self-care (01) ==
LOC: LABWHC1 10:40
PROVIDERS: ATTEND Internal Medicine
DX: C83.30 Diffuse large B-cell lymphoma, unspecified site (principal)
CPT/HCPCS: 36415; 85025

== ENCOUNTER → 2017-12-03 | Outpatient (CLI) | payer BC ==
[2017-12-03 14:22] LABS: Anisocytosis Slight; HCT 29.7 % (39.0-53.0); HGB 9.8 gm/dL (13.0-17.5); Hypochromasia Slight; MCH 30.4 pg (25.0-35.0); MCHC 33.1 g/dL (31.0-37.0); MCV 91.7 fL (80.0-100.0); Mean Platelet Volume 7.4; Platelet Count 160 k/uL (150-450); Poikilocytosis Slight; RBC 3.23 m/uL (4.30-5.90); RDW 16.2 % (11.5-15.5)
[2017-12-03 14:49] LABS: Band Neutrophils % 11 %; Basophils # (M) 0.15 k/uL (0-0.2); Lymphocytes # (M) 1.36 k/uL (1.0-4.8); Metamyelocytes # (M) 1.36 k/uL (0); Metamyelocytes % 9 %; Monocytes # (M) 1.36 k/uL (0-1.0); Myelocytes % 4 %; Neutrophils % (M) 60 %; Nucleated Red Blood Cells 1 /100 WBC (0-0); Total Cells Counted 200; WBC 15.1 k/uL (3.8-10.6)
[2017-12-03 14:51] LABS: Polychromasia Present
[2017-12-03 14:52] LABS: Toxic Granulation Present
== END | disposition home or self-care (01) ==
LOC: LABWHC1 13:40
PROVIDERS: ATTEND Internal Medicine
DX: C83.30 Diffuse large B-cell lymphoma, unspecified site (principal)
CPT/HCPCS: 36415; 85025

== ENCOUNTER → 2018-06-24 | Outpatient (CLI) | payer BC | END | disposition home or self-care (01) | LOC: LABWHC1 10:33 | PROVIDERS: ATTEND Family Medicine | DX: Z00.00 Encounter for general adult medical examination without abnormal findings (principal) | CPT/HCPCS: 36415 ==

== ENCOUNTER → 2019-11-05 | Outpatient (CLI) | payer BC ==
[2019-11-05 12:20] LABS: Basophils # (A) 0.1 k/uL (0-0.2); Basophils % (A) 1 %; Eosinophils # (A) 0.1 k/uL (0-0.7); Eosinophils % (A) 1 %; HCT 46.4 % (39.0-53.0); HGB 15.4 gm/dL (13.0-17.5); Lymphocytes # (A) 1.6 k/uL (1.0-4.8); Lymphocytes % (A) 30 %; MCH 29.5 pg (25.0-35.0); MCHC 33.1 g/dL (31.0-37.0); MCV 89.2 fL (80.0-100.0); Mean Platelet Volume 7.3; Monocytes # (A) 0.3 k/uL (0-1.0); Monocytes % (A) 6 %; Neutrophils # (A) 3.3 k/uL (1.3-7.7); Neutrophils % (A) 60 %; Platelet Count 240 k/uL (150-450); RDW 12.1 % (11.5-15.5); WBC 5.5 k/uL (3.8-10.6)
== END | disposition home or self-care (01) ==
LOC: LABWHC1 11:26
PROVIDERS: ATTEND Internal Medicine
DX: C83.00 Small cell B-cell lymphoma, unspecified site (principal)
CPT/HCPCS: 36415; 83615; 85025

== ENCOUNTER → 2023-02-12 | Outpatient (CLI) | payer BC ==
--- NOTE | 2023-02-12 12:54 | US ---
EXAMINATION TYPE: US carotid duplex BILAT DATE OF EXAM: 02/12/2023 COMPARISON: NONE CLINICAL INDICATION: Male, 37 years old with history of H53.9 UNSPECIFIED VISUAL DISTURBANC H34.213 O CCLUSION ARTERY; TECHNIQUE: Carotid duplex ultrasound examination. Indirect Doppler criteria was utilized. FINDINGS: EXAM MEASUREMENTS: RIGHT: Peak Systolic Velocity (PSV) cm/sec ----- Right CCA: 120.5 ----- Right ICA: 105.7 ----- Right ECA: 125.3 ICA/CCA ratio: 0.9 RIGHT: End Diastole cm/sec ----- Right CCA: 26.8 ----- Right ICA: 28.3 ----- Right ECA: 17.1 LEFT: Peak Systolic Velocity (PSV) cm/sec ----- Left CCA: 112.1 ----- Left ICA: 88.2 ----- Left ECA: 25.3 ICA/CCA ratio: 0.8 LEFT: End Diastole cm/sec ----- Left CCA: 24.1 ----- Left ICA: 23.8 ----- Left ECA: 16.3 VERTEBRALS (direction of flow): Right Vertebral: Antegrade Left Vertebral: Antegrade Rhythm: Normal TRANSFORMER STOCK CLERK NOTES: Minimal changes, no significant stenosis. IMPRESSION: No evidence for hemodynamically significant stenosis. Criteria for Assigning % of Stenosis / Diameter reduction (Estimation based on the indirect measurements of the internal carotid artery velocities (ICA PSV). 1. Normal (no stenosis)=ICA PSV < 125 cm/s: ratio < 2.0: ICA EDV<40 cm/s. 2. Less than 50% stenosis=ICA PSV < 125 cm/s: ratio < 2.0: ICA EDV<40 cm/s. 3. 50 to 69% stenosis=ICA PSV of 125 to 230 cm/s: ration 2.0 ? 4.0: ICA EDV 40-100 cm/s. 4. Greater than 70% stenosis to near occlusion= ICA PSV > 230 cm/s: ratio > 4.0: ICA EDV > 100 cm/s. 5. Near occlusion= ICA PSV velocities may be low or undetectable: variable ratio and ICA EDV. 6. Total occlusion=unable to detect flow.
== END | disposition home or self-care (01) ==
LOC: RADUSWWP 12:17
PROVIDERS: ATTEND Student in an Organized Health Care Education/Training Program
DX: H53.9 Unspecified visual disturbance (principal); H34.213 Partial retinal artery occlusion, bilateral
CPT/HCPCS: 93880

== ENCOUNTER → 2023-03-01 | Outpatient (CLI) | payer BC ==
--- NOTE | 2023-03-02 13:04 | MR ---
EXAMINATION TYPE: MR brain wo/w con DATE OF EXAM: 03/01/2023 6:37 PM CLINICAL INDICATION:Male, 37 years old with history of R51.9 HEADACHE; Blurry vision bilateral more o n the right, Headache, Hx of lymphoma COMPARISON: MRA today. TECHNIQUE: Multi planar, multi sequence imaging was performed through the brain including: T1, T2, In version recovery, susceptibility weighted imaging and gradient echo imaging and Diffusion weighted im aging. The patient was then given intravenous contrast and multi planar, T1 fat-saturation images wer e obtained. IV Contrast: 7.5 cc Gadavist FINDINGS: The levine-white junctions, ventricular system, basal cisterns appear unremarkable. Diffusion-weighted imaging shows no evidence of restricted diffusion to suggest acute/subacute infarct. Intracranial art erial flow voids are maintained. Midline structures show no abnormality. The susceptibility weighted images do not reveal any evidence for micro-hemorrhage. After administration of gadolinium, no abnorm al enhancement is seen. The bone marrow signal is within normal limits. Paranasal sinuses and mastoid air cells: No significant paranasal sinus disease. Visualized orbits: Orbital contents are intact. IMPRESSION: No evidence of intracranial mass, acute/subacute infarct, or abnormal enhancement.
--- NOTE | 2023-03-02 13:07 | MR ---
EXAMINATION TYPE: MR angio head wo con DATE OF EXAM: 03/01/2023 6:36 PM CLINICAL INDICATION:Male, 37 years old with history of R51.9 HEADACHE; Blurry vision bilateral more o n the right, Headache, Hx of lymphoma COMPARISON: MRI brain same day. Technical: 3-D [id number] Axial with MIP reconstruction created on a separate workstation.. IV Contrast: None Findings: Vertebral arteries: The vertebral arteries are patent. Vertebral arteries are: Left dominant. Basilar artery: The basilar artery is intact. The basilar artery bifurcation is normal. Internal Carotid arteries: The cervical, petrous, cavernous and supraclinoid segments are normal. KALE: Patent with no evidence of aneurysm. ACOM: Present without evidence of aneurysm. MCA: Patent with no evidence of aneurysm. BARRATTE OPERATOR: Patent with no evidence of aneurysm. PCOM: Hypoplastic bilaterally. IMPRESSION: No evidence of aneurysm or significant stenosis.
== END | disposition home or self-care (01) ==
LOC: RADMRIMAIN 17:47
PROVIDERS: ATTEND Student in an Organized Health Care Education/Training Program
DX: H34.213 Partial retinal artery occlusion, bilateral (principal); H53.8 Other visual disturbances; R51.9 Headache, unspecified; Z85.72 Personal history of non-Hodgkin lymphomas
CPT/HCPCS: 70544; 70553; A9585

== ENCOUNTER → 2023-03-05 | Outpatient (CLI) | payer BC ==
--- NOTE | 2023-03-06 07:25 | CA ---
Transthoracic Echo Report Name: Ahmet Murphy Age: 37 Gender: M : 1985 Exam Date: 03/05/2023 12:27 Exam Location: [facility] Ht (in): 69 Wt (lb): 165 Ordering Physician: Sadia Flor MD Attending/Referring Phys: Help Desk Engineer Kemi Escalante RDCS Procedure CPT: Indications: H53.9 VISUAL DIST H34.213 OCCLUSION ARTERY Cardiac Hx: Technical Quality: Excellent Contrast 1: Total Dose (mL): Contrast 2: Total Dose (mL): MEASUREMENTS (Male / Female) Normal Values 2D ECHO LV Diastolic Diameter PLAX 4.7 cm 4.2 - 5.9 / 3.9 - 5.3 cm LV Systolic Diameter PLAX 3.3 cm IVS Diastolic Thickness 0.8 cm 0.6 - 1.0 / 0.6 - 0.9 cm LVPW Diastolic Thickness 0.9 cm 0.6 - 1.0 / 0.6 - 0.9 cm LV Relative Wall Thickness 0.4 RV Internal Dim ED PLAX 3.1 cm LA Systolic Diameter LX 3.2 cm 3.0 - 4.0 / 2.7 - 3.8 cm LV Diastolic Volume MOD BP 111.8 cm??? 67 - 155 / 56 - 104 cm??? LV Systolic Volume MOD BP 38.1 cm??? 22 - 58 / 19 - 49 cm??? LV Ejection Fraction MOD BP 65.9 % >= 55 % LV Cardiac Index MOD BP 2154.8 cm???/min???m??? LV Diastolic Volume MOD 4C 102.1 cm??? LV Systolic Volume MOD 4C 34.7 cm??? LV Ejection Fraction MOD 4C 66.0 % LV Cardiac Index MOD 4C 1971.6 cm???/min???m??? LV Diastolic Length 4C 8.1 cm LV Systolic Length 4C 6.1 cm LV Diastolic Volume MOD 2C 121.8 cm??? LV Systolic Volume MOD 2C 37.0 cm??? LV Ejection Fraction MOD 2C 69.7 % LV Cardiac Index MOD 2C 2480.1 cm???/min???m??? LV Diastolic Length 2C 8.0 cm LV Systolic Length 2C 7.0 cm LA Volume 42.7 cm??? 18 - 58 / 22 - 52 cm??? M-MODE Aortic Root Diameter MM 3.2 cm MV E Point Septal Separation 0.4 cm AV Cusp Separation MM 2.1 cm DOPPLER MV Area PHT 3.4 cm??? Mitral E Point Velocity 105.5 cm/s Mitral A Point Velocity 55.3 cm/s Mitral E to A Ratio 1.9 MV Deceleration Time 225.1 ms MV E' Velocity 15.3 cm/s Mitral E to MV E' Ratio 6.9 TR Peak Velocity 210.8 cm/s TR Peak Gradient 17.8 mmHg Right Ventricular Systolic Press 22.6 mmHg FINDINGS Left Ventricle Left ventricular ejection fraction is estimated at 60-65 %. Left ventricular cavity size normal. Left ventricular wall thickness normal. Normal left ventricular wall motion. Right Ventricle Normal right ventricular size and function. Right ventricular systolic pressure within normal limits. Right Atrium Normal right atrial size. Negative agitated saline bubble study for right to left shunt. Left Atrium Normal left atrial size. Mitral Valve Structurally normal mitral valve. Trace mitral regurgitation. Aortic Valve Trileaflet aortic valve. No aortic valve stenosis or regurgitation. Tricuspid Valve Structurally normal tricuspid valve. Mild tricuspid regurgitation. Pulmonic Valve Structurally normal pulmonic valve. Trace pulmonic regurgitation. Pericardium No pericardial effusion. Aorta Normal size aortic root and proximal ascending aorta. CONCLUSIONS Normal LV systolic function Overall normal intracardiac valves No pericardial effusion Previewed by: Dr. Yoel Borjas MD (Electronically Signed) Final Date: 06 March 2023 07:24
== END | disposition home or self-care (01) ==
LOC: RADECHMAIN 12:23
PROVIDERS: ATTEND Student in an Organized Health Care Education/Training Program
DX: H53.9 Unspecified visual disturbance (principal); H34.213 Partial retinal artery occlusion, bilateral
CPT/HCPCS: 93306

== ENCOUNTER → 2023-03-22 | Outpatient (CLI) | payer BC ==
[2023-03-22 21:00] LABS: ALT 32 U/L (10-49); AST 28 U/L (14-35); Albumin 5.1 d/dL (3.8-4.9); Albumin/Globulin Ratio 2.12 Ratio (1.60-3.17); Alkaline Phosphatase 56 U/L (41-126); BUN/Creat Ratio 15.18 Ratio (12.00-20.00); Blood Urea Nitrogen 16.7 mg/dL (9.0-27.0); Calcium 9.8 mg/dL (8.7-10.3); Carbon Dioxide 27.7 mmol/L (21.6-31.8); Chloride 102 mmol/L (96-109); Globulin 2.4 d/dL (1.6-3.3); Glucose 89 mg/dL (70-110); Potassium 4.5 mmol/L (3.5-5.5); Sodium 141 mmol/L (135-145); T4, Free (Free Thyroxine) 1.28 ng/dL (0.80-1.80); Total Bilirubin 0.5 mg/dL (0.3-1.2); Total Protein 7.5 d/dL (6.2-8.2)
[2023-03-22 21:19] LABS: Basophils # (A) 0.07 X 10*3/uL (0.00-0.10); Eosinophils # (A) 0.05 X 10*3/uL (0.04-0.35); Eosinophils % (A) 0.7 %; HCT 46.2 % (39.6-50.0); HGB 15.4 d/dL (13.0-17.0); Lymphocytes # (A) 2.27 X 10*3/uL (0.90-5.00); Lymphocytes % (A) 31.4 %; MCH 29.6 pg (27.0-32.0); MCHC 33.3 d/dL (32.0-37.0); MCV 88.7 FL (80.0-97.0); Monocytes # (A) 0.58 X 10*3/uL (0.20-1.00); NRBC Per 100 WBC 0 X 10*3/uL (0.00-0.01); Neutrophils # (A) 4.24 X 10*3/uL (1.80-7.70); Neutrophils % (A) 58.8 %; Platelet Count 277 X 10*3/uL (140-440); RBC 5.21 X 10*6/uL (4.40-5.60); RDW 11.8 % (11.5-14.5); WBC 7.22 X 10*3/uL (4.50-10.00)
[2023-03-22 21:49] LABS: Thyroid Peroxidase Antibodies <9.0 U/mL (0.0-33.0)
== END | disposition home or self-care (01) ==
LOC: LABWHC1 14:47
PROVIDERS: ATTEND Internal Medicine Endocrinology, Diabetes & Metabolism
DX: R53.83 Other fatigue (principal)
CPT/HCPCS: 36415; 80053; 82024; 82306; 82533; 82607; 84146; 84305; 84439; 84443; 84480; 85025; 86376

== ENCOUNTER 2024-11-09 15:48 | Day surgery (SDC) | payer BC ==
[~2024-11-09 15:48] MED LIST: SODIUM CHLORIDE 0.9% 1,000 ML IV SCH
[2024-11-09 17:55] LABS: Glucose,Whole Blood 79 mg/dL (70-110)
[2024-11-09 17:57] VITALS: RESP 18; TEMP 97.1
[2024-11-09] MEDS: IV FLUID CONTINUATION 1,000 ML IV ONE (17:57)
[2024-11-09] MEDS: ceFAZolin 2 GM in DEXTROSE 5% IN WATER 50 ML IVPB ONE (18:26)
[2024-11-09] MEDS: LIDOCAINE 1% INJ 10MG/ML (20 ML MDV) SQ ONE (18:29)
[2024-11-09] MEDS: ATROPINE SULFATE 0.1 MG/ML 10ML SYRINGE IVP ONE ×2 (18:34)
--- NOTE | 2024-11-09 19:03 | P.EPPROC ---
- EP Procedure Note Electrophysiology Procedure Note: Loop monitor implant, [place] Primary physicians: [employer] Supervisor: Dr. Quezada Indication: Recurrent palpitations Patient was brought to the EP lab in a fasting state. Written informed consent was obtained prior to the procedure. The left pectoral area was prepped and draped per protocol. Intravenous antibiotic was administered preoperatively. A subcutaneous Loop monitor was implanted successfully and the wound was closed per protocol. The device was programmed to detect significant jeremy- arrhythmic and tachy-arrhythmic events, per protocol. Device and programming details: Tachycardia protocol
[2024-11-09 19:24] VITALS: BP 125/76; PULSE 84
== END 2024-11-09 19:51 | disposition home or self-care (01) ==
LOC: CATHEP 15:48
PROVIDERS: ATTEND Internal Medicine Clinical Cardiac Electrophysiology
DX: R55 Syncope and collapse (principal); I47.10 Supraventricular tachycardia, unspecified
CPT/HCPCS: 33285; C1764; J0690; J2003; J0461